=== PATIENT | female | born 1990 | race Caucasian/White ===

== ENCOUNTER → 2017-08-09 | Outpatient (CLI) | payer OTHER ==
[~2017-08-09] MED LIST: AMOX250 PO; AMOX50SU PO; CODACEE120 PO; DIPH12.5EL PO; FAMO20 PO; FAMO8SU PO; HYDACE5 PO; IBUP800 PO; MICO100S VAG; NEOPOLHYD OP; NITR100CA PO; PRED10 PO; PRED20 PO; PROCODE120 PO
[2017-08-09 17:04] LABS: Source, Urine Clean Catch
[2017-08-09 18:05] LABS: Appearance, Urine Hazy (Clear); Bilirubin, Urine Neg (Neg); Blood, Urine 1+ (Neg); Color, Urine Yellow (P-Yellow); Glucose Qualitative, Urine Neg (Neg); Ketones, Urine Neg (Neg); Leukocyte Esterase, Urine 1+ (Neg); Nitrite, Urine Pos (Neg); Protein, Urine Neg (Neg); Specific Gravity, Urine 1.015 (1.003-1.022); Urobilinogen, Urine NORM (Normal)
[2017-08-09 18:28] LABS: Amorphous Light (0-Heavy); Bacteria Many /hpf; Red Blood Cells, Urine Not Seen /hpf (0-2); Squamous Epithelial Cells Not Seen /hpf (Few); White Blood Cells, Urine Not Seen /hpf (0-5)
== END ==
LOC: LAB 17:03
PROVIDERS: Advanced Practice Midwife
DX: N32.81 Overactive bladder (principal)
CPT/HCPCS: 81001; 87077; 87086; 87186

== ENCOUNTER 2020-06-20 17:02 | Emergency (ER) | payer OTHER ==
[~2020-06-20] VITALS: Ht 160 cm; Wt 83.0 kg
== END 2020-06-20 18:32 | disposition home or self-care (01) ==
LOC: ER 17:02
DX: H01.001 Unspecified blepharitis right upper eyelid (principal); S00.211A Abrasion of right eyelid and periocular area, initial encounter; F17.200 Nicotine dependence, unspecified, uncomplicated; X58.XXXA Exposure to other specified factors, initial encounter
CPT/HCPCS: 99283

== ENCOUNTER → 2025-01-29 | Outpatient (CLI) | payer OTHER ==
[2025-01-30 12:34] LABS: Bacterial Vaginosis PCR Negative (NEGATIVE); Candida Group, PCR NOT DETECTED (NOT DETECT); Candida glabrata-krusei, PCR NOT DETECTED (NOT DETECT)
[2025-01-30 13:08] LABS: Chlamydia Trachomatis Vaginal NOT DETECTED (NOT DETECT); Neisseria Gonorrhoea Vaginal NOT DETECTED (NOT DETECT)
== END ==
LOC: LAB 16:56 → LAB SHORT 16:56
PROVIDERS: Advanced Practice Midwife
DX: N76.0 Acute vaginitis (principal); Z11.3 Encounter for screening for infections with a predominantly sexual mode of transmission
CPT/HCPCS: 81515; 87491; 87591